=== PATIENT | female | born 1990 | race Two or more races ===

== ENCOUNTER 2017-10-19 02:29 | Emergency (ER) | payer SELFPAY ==
[2017-10-19 02:54] LABS: URINE HCG POC HCG POSITIVE (Negative)
[2017-10-19 03:11] LABS: BILIRUBIN,URINE NEGATIVE (NEG); CLARITY,URINE CLEAR; COLOR,URINE YELLOW; GLUCOSE,URINE NEGATIVE (NEG); NITRITE,URINE NEGATIVE (NEG); PROTEIN,URINE NEGATIVE (NEG-TRACE)
[2017-10-19 04:00] LABS: ADD MAN DIFF? NO
[2017-10-19 04:06] LABS: BASO % 0 % (0-3); EOS # 0.1 x10^3/uL (0.0-0.7); EOS % 2 % (0-3); HEMATOCRIT 36.4 % (36.0-47.0); HEMOGLOBIN 12.4 g/dL (12.0-15.5); LYMPH # 2.6 x10^3/uL (1.0-4.8); LYMPH % 28 % (24-48); MEAN CORPUSCULAR HEMOGLOBIN 31 pg (25-35); MEAN CORPUSCULAR HGB CONC 34 g/dL (31-37); MEAN CORPUSCULAR VOLUME 89 fL (79-100); MONO # 0.7 x10^3/uL (0.0-1.1); MONO % 8 % (0-9); NEUT # 6.1 x10^3uL (1.8-7.7); NEUT % 63 % (31-73); PLATELET COUNT 269 x10^3/uL (140-400); RED BLOOD COUNT 4.08 x10^6/uL (3.50-5.40); RED CELL DISTRIBUTION WIDTH 13.4 % (11.5-14.5); WHITE BLOOD COUNT 9.6 x10^3/uL (4.0-11.0)
[2017-10-19 04:50] LABS: BACTERIA,URINE MODERATE /HPF (0-FEW); SQUAMOUS EPITHELIAL CELL,UR FEW /LPF
[2017-10-19 05:45] LABS: ANTIBODY SCREEN 1 1
[2017-10-20 15:28] LABS: CHLAMYDIA PROBE Negative (Negative); GC PROBE Negative (Negative)
== END 2017-10-19 06:35 | disposition home or self-care (01) ==
LOC: ER 02:29
DX: O20.0 Threatened abortion (principal); O36.0910 Maternal care for other rhesus isoimmunization, first trimester, not applicable or unspecified; Z3A.01 Less than 8 weeks gestation of pregnancy
CPT/HCPCS: 36415; 76801; 76817; 81001; 81025; 84702; 85025; 86850; 86900; 86901; 87086; 87491; 87591; 99285-25; J2791; Q0111

== ENCOUNTER → 2019-09-07 | Outpatient (CLI) | payer OTHER ==
[2017-10-19 06:23] VITALS: BP 103/55
[~2019-09-07] MED LIST: CONTRAST GIVEN. MC PRN; IOHEXOL 240 MG/ML 50ML VIAL. PO ONE; IOHEXOL 300 MG/ML 100ML VIAL. IV ONE; PNV1TABL25 PO
--- NOTE | 2019-09-07 16:56 | RAD ---
CT study of the abdomen and pelvis with contrast Clinical indications: Periumbilical hernia/mass. TECHNIQUE: After IV infusion of 75 cc of Omnipaque 300, helical CT scanning of the abdomen and pelvis was performed. GI contrast was administered per mouth. PQRS compliance Statement One or more of the following individualized dose reduction techniques were utilized for this study: 1. Automated exposure control 2. Adjustment of the mA and/or kV according to patient size 3. Use of iterative reconstruction technique COMPARISON: None available. FINDINGS: The liver and spleen and pancreas and gallbladder are normal. No extrahepatic biliary ductal dilatation is seen. No adrenal mass is evident. Both kidneys are normal and the urinary bladder is not distended. IUD is seen within the central aspect of the uterus which is proper positioning. Uterus is retroverted. No dominant ovarian cyst or mass is evident. No focal aneurysmal dilatation of the abdominal aorta is seen. No enlarged abdominal or pelvic lymphadenopathy is evident. There is mild fecal retention throughout the colon. There is wall thickening of the transverse colon. The appendix and terminal ileum are normal. No obstructive bowel pattern is evident. No free air or free fluid or mesenteric edema is seen. No lung base consolidation is evident. No lytic process is evident. IMPRESSION: There is wall thickening of the transverse colon. This may be due to incomplete distention but could be seen with colitis if there are clinical findings of such. Within the midline of the abdomen, there is a small umbilical hernia containing only fat. It measures 2 cm in greatest dimension. There is mild inflammation here which may indicate incarceration. No other anterior abdominal wall hernia is seen. Electronically signed by: Kaushal Guevara MD (09/07/2019 4:53 PM) [facility]
== END | disposition home or self-care (01) ==
LOC: CT 09:39
PROVIDERS: ATTEND Physician Assistant Medical
DX: K42.9 Umbilical hernia without obstruction or gangrene (principal); N85.4 Malposition of uterus; K59.00 Constipation, unspecified; K63.89 Other specified diseases of intestine
CPT/HCPCS: 74177; Q9966; Q9967

== ENCOUNTER 2019-12-12 21:36 | Emergency (ER) | payer SELFPAY ==
[2017-10-19 06:23] VITALS: BP 103/55
[~2019-12-12] VITALS: Ht 160 cm; Wt 64.0 kg
[~2019-12-12 21:36] MED LIST changes: -CONTRAST GIVEN. MC PRN; -IOHEXOL 240 MG/ML 50ML VIAL. PO ONE; -IOHEXOL 300 MG/ML 100ML VIAL. IV ONE
--- NOTE | 2019-12-12 22:12 | PHYS DOC ---
Past Medical History Past Medical History: No Pertinent History Past Surgical History: No Surgical History Smoking Status: Never Smoker Alcohol Use: None Drug Use: None Adult General Chief Complaint Chief Complaint: FOOT INJURY PAIN HPI HPI 29-year-old female presents emergency department complaints of right posterior ankle pain. Patient is German-speaking, her is at the bedside. States she did have some injury, states she did not fall however twisted it abit. She is able to bear weight on exam. TTP on exam. Patient denies chest pain, SOB, nausea or vomiting. Nothing makes her pain better. Weight bearing makes pain worse. Review of Systems Review of Systems Constitutional: Denies fever or chills [] Respiratory: Denies cough or shortness of breath [] Cardiovascular: No additional information not addressed in HPI [] GI: Denies abdominal pain, nausea, vomiting, bloody stools or diarrhea [] : Denies dysuria or hematuria [] Musculoskeletal: TTP posterior right ankle Neurologic: Denies headache, focal weakness or sensory changes [] All other systems were reviewed and found to be within normal limits, except as documented in this note. Allergies Allergies Allergies Coded Allergies Type Severity Reaction Last Updated Verified No Known Drug Allergies 09/07/19 No Physical Exam Physical Exam Constitutional: Well developed, well nourished, no acute distress, non-toxic appearance. [] Cardiovascular:Heart rate regular rhythm, no murmur [] Lungs & Thorax: Bilateral breath sounds clear to auscultation [] Abdomen: Bowel sounds normal, soft, no tenderness, no masses, no pulsatile masses. [] Skin: Warm, dry, no erythema, no rash. [] Extremities: TTP right ankle, no obvious bruising however more swollen. [] Neurologic: Alert and oriented X 3, no focal deficits noted. [] Psychologic: Affect normal, judgement normal, mood normal. [] Current Patient Data Vital Signs Vital Signs Date Time Temp Pulse Resp B/P (MAP) Pulse Ox O2 Delivery O2 Flow Rate FiO2 12/12/19 21:59 98.6 107 16 129/60 (83) 97 Room Air 98.6 Lab Values Laboratory Tests Test 12/12/19 22:16 POC Urine HCG, Qualitative Hcg negative (Negative) EKG EKG [] Radiology/Procedures Radiology/Procedures [facility] [address] [place] [address] IMAGING REPORT Signed PATIENT: FREDA MCCAULEYCOUNT: [id number] : 1990 LOCATION: ER AGE: 29 SEX: F EXAM STATUS: REG ER ORD. PHYSICIAN: BELGICA LEE MD REASON: posterior ankle pain PROCEDURE: ANKLE RIGHT 3V Study: CR ANKLE RIGHT 3V Indication: Posterior ankle pain. Comparison: None. Findings: Anatomic alignment at the ankle. The talar dome is unremarkable. No acute fracture involving the ankle or the visualized foot. Impression: No acute osseous abnormality at the right ankle to account for the patient's symptoms. Electronically signed by: SASHA ALEXANDER MD (12/12/2019 11:08 PM) [id number] DICTATED and SIGNED BY: SASHA ALEXANDER MD DATE: 12/12/198 [] Course & Med Decision Making Course & Med Decision Making Pertinent Labs and Imaging studies reviewed. (See chart for details) []29-year-old female presents emergency department complaints of right posterior ankle pain. Patient is German-speaking, her is at the bedside. States she did have some injury, states she did not fall however twisted it abit. She is able to bear weight on exam. TTP on exam. Patient denies chest pain, SOB, nausea or vomiting. Nothing makes her pain better. Weight bearing makes pain worse. Imaging without acute findings for pain Recommend kyaw wrap and follow up with PCP Tylenol/Motrin as needed Dragon Disclaimer Dragon Disclaimer This electronic medical record was generated, in whole or in part, using a voice recognition dictation system. Departure Departure Impression: Primary Impression: Ankle pain, right Disposition: 01 HOME, SELF-CARE Condition: STABLE Referrals: NO PCP (PCP) Patient Instructions: Ankle Pain Additional Instructions: Tylenol/Motrin as needed for pain Xray without acute findings of fracture Kyaw wrap provided in ER Follow up with PCP in 3 - 5 days Problem Qualifiers Primary Impression: Ankle pain, right Chronicity: acute Qualified Codes: M25.571 - Pain in right ankle and joints of right foot BELGICA LEE MD Dec 12, 2019 22:12
--- NOTE | 2019-12-12 23:11 | RAD ---
Study: CR ANKLE RIGHT 3V Indication: Posterior ankle pain. Comparison: None. Findings: Anatomic alignment at the ankle. The talar dome is unremarkable. No acute fracture involving the ankle or the visualized foot. Impression: No acute osseous abnormality at the right ankle to account for the patient's symptoms. Electronically signed by: SASHA ALEXANDER MD (12/12/2019 11:08 PM) [id number]
== END 2019-12-12 23:20 | disposition home or self-care (01) ==
LOC: ER 21:36
DX: M25.571 Pain in right ankle and joints of right foot (principal)
CPT/HCPCS: 73610; 81025; 99283

== ENCOUNTER 2020-01-10 21:27 | Emergency (ER) | payer SELFPAY ==
[~2020-01-10] VITALS: Ht 165.1 cm; Wt 85.0 kg
[2020-01-10 21:34] VITALS: BP 133/73
--- NOTE | 2020-01-10 22:49 | RAD ---
ANKLE RIGHT 3V History: Ankle injury 1 month ago Comparison: None. Findings: 3 views of the right ankle are submitted. No acute fracture or dislocation is identified by radiographs. Impression: 1. No acute osseous abnormality is identified by radiographs. Electronically signed by: Shiraz Ramos MD (01/10/2020 10:46 PM) [facility]
[2020-01-10] MEDS ORDERED: TRAM50TA PO (22:54)
--- NOTE | 2020-01-10 22:54 | PHYS DOC ---
Past Medical History Past Medical History: No Pertinent History Past Surgical History: No Surgical History Smoking Status: Never Smoker Alcohol Use: None Drug Use: None General Adult EDM: Chief Complaint: LOWER EXT PAIN HPI: HPI: Patient is a 29 year old female who presents with complaint of one month histor y of right ankle pain after injuring it a month ago. Patient was seen here at this facility and had x-ray of the right ankle that was negative. She states that the pain is still present and just not getting any better. She states the soft tissue swelling is also present. Patient does indicate that she did injure the ankle and when asked if her foot had slipped off of a curb, she indicated that what happened.[] Review of Systems: Review of Systems: Constitutional: Denies fever or chills. [] Respiratory: Denies cough or shortness of breath. [] Cardiovascular: Denies chest pain or edema. [] Musculoskeletal: Positive right ankle pain. [] Integument: Denies rash. [] Neurologic: Denies headache, focal weakness or sensory changes. [] Heart Score: Risk Factors: Risk Factors: DM, Current or recent (<one month) smoker, HTN, HLP, family history of CAD, obesity. Risk Scores: Score 0 - 3: 2.5% MACE over next 6 weeks - Discharge Home Score 4 - 6: 20.3% MACE over next 6 weeks - Admit for Clinical Observation Score 7 - 10: 72.7% MACE over next 6 weeks - Early Invasive Strategies Allergies: Allergies: Allergies Coded Allergies Type Severity Reaction Last Updated Verified No Known Drug Allergies 09/07/19 No Physical Exam: PE: Constitutional: Well developed, well nourished, no acute distress, non-toxic appearance. [] Cardiovascular:Heart rate regular rhythm, no murmur [] Lungs & Thorax: Bilateral breath sounds clear to auscultation [] Skin: Warm, dry, no erythema, no rash. [] Extremities: Examination of right ankle demonstrates soft tissue swelling and tenderness around the insertion of the Achilles tendon. There is a positive Villagomez's test. [] Neurologic: Alert and oriented X 3, no focal deficits noted. [] Current Patient Data: Vital Signs: Vital Signs Date Time Temp Pulse Resp B/P (MAP) Pulse Ox O2 Delivery O2 Flow Rate FiO2 01/10/20 21:34 98.3 86 16 133/73 (93) 98 Room Air 98.3 EKG: EKG: [] Radiology/Procedures: Radiology/Procedures: [] Impression: PROCEDURE: ANKLE RIGHT 3V ANKLE RIGHT 3V History: Ankle injury 1 month ago Comparison: None. Findings: 3 views of the right ankle are submitted. No acute fracture or dislocation is identified by radiographs. Impression: 1. No acute osseous abnormality is identified by radiographs. Electronically signed by: Shiraz Ramos MD (01/10/2020 10:46 PM) [facility] Course & Med Decision Making: Course & Med Decision Making Pertinent Labs and Imaging studies reviewed. (See chart for details) [] Dragon Disclaimer: Dragon Disclaimer: This electronic medical record was generated, in whole or in part, using a voice recognition dictation system. Departure Departure Impression: Primary Impression: Achilles tendon rupture Qualified Codes: S86.011A - Strain of right Achilles tendon, initial encounter Disposition: HOME, SELF-CARE Condition: STABLE Referrals: NO PCP (PCP) MARKOS VILLALTA MD Call to schedule appointment with Dr. Villalta in the next week. Patient Instructions: Achilles Tendon Rupture (Complete), Achilles Tendon Rupture (Partial, Incomplete) Scripts Tramadol Hcl (TRAMADOL HCL) 50 Mg Tablet 50 MG PO Q6HRS PRN for PAIN, #20 TAB Prov: DOREEN MALONEY Jr. DO 01/10/20 DOREEN MALONEY Jr. DO Jan 10, 2020 22:54
== END 2020-01-10 23:19 | disposition home or self-care (01) ==
LOC: ER 21:27
DX: S86.011A Strain of right Achilles tendon, initial encounter (principal); X58.XXXA Exposure to other specified factors, initial encounter; Y93.89 Activity, other specified; Y92.89 Other specified places as the place of occurrence of the external cause; Y99.8 Other external cause status
CPT/HCPCS: 73610; 99283

== ENCOUNTER 2020-01-22 10:54 | Day surgery (SDC) | payer SELFPAY ==
--- NOTE | 2020-01-21 13:11 | PDOC1 ---
History and Physical Date of Admission Date of Admission 01/22/2020 Identification/Chief Complaint Chief Complaint Right Achilles rupture Source Source: Chart review, Patient History of Present Illness History of Present Illness Miracle is a 29-year-old female here with right ankle pain. She does not work outside the home, but she has 2 children: 2 and 4 years old. She was seen in the ED on 12/12/19 for right ankle pain following injury (fell going up step) although XR of her ankle were negative at that time. She again presented to the ED on 01/10/20 with complaints of continued right ankle pain and swelling, however, her x-rays were again negative for any abnormality. Currently, she states that the doctor at her 2nd ER visit told her that her tendon was ripped. She describes occasional pain and swelling and denies any numbness/tingling in her foot. She has been wearing a boot and believes that this is not helpful--no improvement whatsoever. The history, exam and treatment options were discussed through video shipping weigher via laptop computer in the room. Past Medical History Past Medical History No significant medical history Past Surgical History Past Surgical History 2018 Past Surgical History: Family History Family History Mother has diabetes Family History: Diabetes Social History Smoke: No ALCOHOL: none Current Problem List Problem List Rupture of right Achilles tendon, initial encounter - S86.011A Current Medications Current Medications Active Scripts Active Reported Tylenol (Acetaminophen) 325 Mg Tablet 1 Tab PO PRN Q4HRS Allergies Allergies: Coded Allergies: No Known Drug Allergies (Unverified , 01/21/20) VTE Prophylaxis Ordered VTE Prophylaxis Devices: Yes VTE Pharmacological Prophylaxi: Yes Assessment/Plan Assessment/Plan Rupture of right Achilles tendon, initial encounter - S86.011A She and I discussed the risks benefits and alternatives of surgical repair of the Achilles tendon. She has tried nonoperative treatment for 4 weeks, with essentially no evidence that there has been any tissue healing. I am not optimistic in her case that we can treat this nonoperatively. I recommended surgery. I discussed that because it has been a month or more since the injury we might require grafting lengthening procedures but I am hopeful for a primary repair based on her examination. We talked about the potential risks of the surgery including stiffness bleeding infection blood clots numbness wound healing issues, or other potential surgical or anesthetic complications. We discussed continued nonoperative treatment with a boot, a short leg cast or a long-leg cast. The most recent literature seems to indicate that weightbearing as tolerated in the boot is acceptable for nonoperative treatment but she has not recovered any tendon function using a boot for the last 4 weeks. I believe she should have this surgically repaired and she agrees. All of her questions about surgery were answered. The procedure plan would be CPT code 31344, right ankle, repair, primary, open, ruptured Achilles tendon MARKOS SORIANO MD January 21, 2020 13:11
[~2020-01-22] VITALS: Ht 162.6 cm; Wt 85.3 kg
[2020-01-22] MEDS: IV RINGERS,LACTATED 1000ML 1,000 ML IV SCH ×2 (07:00→14:54)
[~2020-01-22 10:54] MED LIST changes: +ACET325T9 PO; +HYDROmorphone 2 MG/ML VIAL IV PRN; +LIDOCAINE 1% PF 2 ML VIAL. ID PRN; +ONDANSETRON PF 4 MG/2 ML VIAL. IV PRN; +PROCHLORPERAZINE 10 MG/2 ML VIAL. IV PRN; +TRAM50TA PO; +fentaNYL PF VIAL 100 MCG/2 ML VIAL IV PRN
[2020-01-22] MEDS ORDERED: ceFAZolin 2GM PREMIX 2 GM/50 ML BAG IV ONE (11:00)
[2020-01-22] MEDS ORDERED: SUCCINYLCHOLINE 200 MG/10 ML VIAL. ONE (11:08)
[2020-01-22] MEDS ORDERED: ROCURONIUM 50 MG/5 ML VIAL. ONE (11:08)
[2020-01-22] MEDS ORDERED: DEXAMETHASONE SOD PHOS 4 MG/ML VIAL ONE (11:08)
[2020-01-22] MEDS ORDERED: ONDANSETRON PF 4 MG/2 ML VIAL. ONE (11:08)
[2020-01-22] MEDS ORDERED: LIDOCAINE 2% PF 5 ML VIAL. ONE (11:08)
[2020-01-22] MEDS ORDERED: PROPOFOL 10 MG/ML (20ML) VIAL. IV ONE (11:08)
[2020-01-22] MEDS ORDERED: fentaNYL PF VIAL 100 MCG/2 ML VIAL ONE ×2 (11:09→14:39)
[2020-01-22] MEDS ORDERED: MIDAZOLAM HCL/PF 2 MG/2 ML VIAL. ONE (11:09)
[2020-01-22] MEDS ORDERED: BUPIVACAINE-EPI 0.25%-1:200000 MPF 30 ML VIAL. ONE (12:41)
[2020-01-22] MEDS ORDERED: BUPIVACAINE MPF 0.25% 30 ML VIAL. ONE (12:41)
[2020-01-22] MEDS ORDERED: NEOSTIGMINE METHYLSULFATE 5 MG/5 ML SYRINGE. ONE (13:59)
[2020-01-22] MEDS ORDERED: GLYCOPYRROLATE 1 MG/5 ML VIAL. ONE (13:59)
--- NOTE | 2020-01-22 14:14 | PDOC4 ---
Operative Note Operative Note PREOPERATIVE DIAGNOSIS: Strain of right Achilles tendon, initial encounter (Achilles tendon rupture) S86.011A. POSTOPERATIVE DIAGNOSIS: Strain of right Achilles tendon, initial encounter (Achilles tendon rupture) S86.011A. PROCEDURE PERFORMED: Repair, primary, open, ruptured Achilles tendon, CPT 34459. SURGEON: Markos Villalta M.D. PRODUCER ARBORIST MANAGER: Roni KEEN ANESTHESIA: General. ESTIMATED BLOOD LOSS: Minimal. TOURNIQUET: 20 minutes at 300 mm Hg COMPLICATIONS: None. SPECIMENS: None. DRAINS: None. INDICATIONS FOR PROCEDURE: Miracle is a 29 year old with an Achilles tendon rupture. Examination showed an abnormal Villagomez test and a palpable defect. I recommended surgical repair, but we discussed the option of nonsurgical treatment with the cast or other immobilization. Surgical repair has a lower risk of re-rupture but has a higher risk of skin healing and wound healing complications, infections or other potential surgical complications. The risks of complications is low for a healthy individual, and we discussed the potential risks of infection, bleeding, blood clots, scarring, re-rupture, stiffness, or other potential surgical or anesthetic complications. All of her questions about surgery were answered and she desires to proceed. A written consent was obtained. DESCRIPTION OF PROCEDURE: The patient was identified in the preoperative holding area. The correct right lower extremity was marked by me. She was taken to the operating room where a general anesthetic was used. Preoperative antibiotics were given intravenously. A time-out procedure was performed. The patient was positioned prone on the operating table with the bony prominences well-padded and with eyes protected. A tourniquet was placed on the operative right thigh. The limb was prepared with ChloraPrep solution from the tourniquet to the toes and sterile drapes were applied. Sterile gloves were placed over the toes and heel to further drape out the foot. An Esmarch bandage was used to exsanguinate the limb and the tourniquet was inflated to 300 mm Hg. A longitudinal incision was made slightly medial to the midline of the Achilles, centered over the area of the palpable defect. Sharp dissection was used and Bovie electrocautery was used only as needed for hemostasis. The Achilles tendon paratenon was divided, and the rupture was easily identified. This was a high grade tear, complete rupture with no remaining intact fibers and no bridging granulation or other evidence of tendon healing. There was granulation tissue at the edges of the ruptured tendon proximally and distally, but there was a 3 cm gap between the proximal tendon granualtion and the distal tendon granulation. The plantaris tendon remained intact, but was ultimately excised to facilitate the repair because it was scarred to the bulk of the tendon proximally and distally, and it interfered with suture placement. The tendon quality is slightly tendonotic especially considering her young age. Copious saline irrigation was used. Curettes, rongeurs, and Metzenbaum scissors were used to remove any devitalized tissue, without any excessive debridement so as to prevent a tense repair. After preparation and cleansing of the tendon ends, the foot was plantarflexed and the repair commenced. I used #5 FiberWire suture, and a Foster suture pattern while my plumber's assistant maintained the tendon reduction by plantarflexing the foot and by using Val clamps to hold the ends together. The needle entered the proximal end of the lateral portion of the tendon where I placed three running locking sutures laterally, working proximal to distal, and then crossed the rupture into the d istal Achilles tendon fragment, and continued with three running locking sutures laterally, and three running locking sutures medially, crossed the repair again, and placed three final running locking sutures in the proximal medial Achilles tendon. The suture ends were now tied with the secure reapproximation of the tendon fibers while my plumber's assistant maintained the tendon reduction. I augmented that repair with a #1 PDS suture placed in a modified Macias pattern for additional suture material across the rupture.. A #2-0 PDS was used in a running fashion circumferentially around the tendon for further tenriism of the tendon architecture. A secure repair was obtained and the tendon feels smooth to palpation and intact. The tourniquet was released. Bovie electrocautery was used as needed for hemostasis. Thorough saline irrigation was used and the outer gloves were changed by the operating staff. Next, 30 mL of 0.25% bupivacaine with epinephrine was injected at the skin edges for additional hemostasis and pain relief. The paratenon was closed with 2-0 PDS suture by me. My plumber's assistant repaired the subcutaneous tissues with #2-0 Vicryl inverted interrupted sutures. Finally, the skin was reapproximated with 3-0 Prolene horizontal mattress and simple sutures by my plumber's assistant. Xeroform and sterile dressing were applied. The leg was splinted in gravity dorsiflexion with a bulky sterile dressing under the splint. Needle and sponge counts were correct. There were no apparent complications. MARKOS VILLALTA MD January 22, 2020 14:14
[2020-01-22] MEDS ORDERED: oxyCODONE/APAP 5/325 1 TAB TABLET PO PRN ×2 (14:30→15:00)
[2020-01-22] MEDS ORDERED: diazePAM 5 MG TABLET PO PRN (14:30)
[2020-01-22] MEDS ORDERED: MORPHINE SULFATE 2 MG/ML VIAL. ONE (14:39)
[2020-01-22] MEDS: fentaNYL PF VIAL 100 MCG/2 ML VIAL IV PRN ×2 (14:42→15:16)
[2020-01-22] MEDS: MORPHINE SULFATE 2 MG/ML VIAL. IV PRN ×2 (14:43→14:54)
[2020-01-22] MEDS ORDERED: diazePAM 5 MG TABLET PO ONE (14:45)
[2020-01-22 16:00] VITALS: BP 133/56
[2020-01-22] MEDS ORDERED: ASPIRIN ENTERIC COATED 325 MG TABLET.DR. PO SCH (21:00)
== END 2020-01-22 16:51 | disposition home or self-care (01) ==
LOC: SURG 10:54
PROVIDERS: ATTEND Orthopaedic Surgery
DX: S86.011A Strain of right Achilles tendon, initial encounter (principal); E66.9 Obesity, unspecified; Z68.32 Body mass index [BMI] 32.0-32.9, adult; Z11.59 Encounter for screening for other viral diseases; X58.XXXA Exposure to other specified factors, initial encounter; Y93.89 Activity, other specified; Y92.89 Other specified places as the place of occurrence of the external cause; Y99.8 Other external cause status
CPT/HCPCS: 36415; 81025; 87635; A7015; J0330; J0690; J1100; J2250; J2270; J2405; J2704; J2710; J3010; J3490; J7120